=== PATIENT | female | born 1995 | race Caucasian/White ===

== ENCOUNTER 2018-02-17 19:04 | Emergency (ER) | payer MEDICAID ==
[2018-02-17 19:28] VITALS: PULSE 78
[2018-02-17] MEDS ORDERED: Sodium Chloride 0.9% 1,000 ML IV ONE (19:55)
--- NOTE | 2018-02-17 19:55 | C.PDOC ---
History Of Present Illness 22 year old female presents to the ED c/o abdominal pain associated with vomiting that started yesterday. Patient reports her periods have been irregular. Patient denies fever, chills, diarrhea, back pain, dysuria, hematuria. Time Seen by Provider: 02/17/18 19:32 Chief Complaint (Nursing): Abdominal Pain History Per: Patient History/Exam Limitations: no limitations Onset/Duration Of Symptoms: Days (1) Current Symptoms Are (Timing): Still Present Severity: Moderate Pain Scale Rating Of: 4 Location Of Pain/Discomfort: RLQ Radiation Of Pain To:: None Quality Of Discomfort: "Pain" Associated Symptoms: Vomiting Exacerbating Factors: None Alleviating Factors: None Recent travel outside of the [place]: No Additional History Per: Patient Abnormal Vaginal Bleeding: No Past Medical History Reviewed: Historical Data, Nursing Documentation, Vital Signs Vital Signs: Last Vital Signs Temp 97.6 F 02/17/18 19:11 Pulse 78 02/17/18 19:11 Resp 20 02/17/18 19:11 BP 117/83 02/17/18 19:11 Pulse Ox 100 02/17/18 23:15 - Medical History PMH: No Chronic Diseases Denies: Diabetes, Hepatitis, HIV, HTN, Seizures, Sexually Transmitted Disease Surgical History: No Surg Hx Family History: States: Unknown Family Hx - Social History Hx Tobacco Use: Yes Hx Alcohol Use: Yes Hx Substance Use: Yes - Immunization History Hx Tetanus Toxoid Vaccination: No Hx Influenza Vaccination: No Hx Pneumococcal Vaccination: No Review Of Systems Constitutional: Negative for: Fever, Chills Cardiovascular: Negative for: Chest Pain Respiratory: Negative for: Shortness of Breath Gastrointestinal: Positive for: Vomiting, Abdominal Pain. Negative for: Diarrhea Genitourinary: Negative for: Dysuria, Hematuria Musculoskeletal: Negative for: Back Pain Skin: Negative for: Rash Physical Exam - Physical Exam Appears: Non-toxic, In Acute Distress Skin: Warm, Dry Head: Normacephalic Eye(s): bilateral: Normal Inspection Oral Mucosa: Moist Neck: Supple Chest: Symmetrical Cardiovascular: Rhythm Regular Respiratory: No Rales, No Rhonchi, No Wheezing Gastrointestinal/Abdominal: Soft, Tenderness (RLQ), No Distention, Guarding ( mild), No Rebound Back: Normal Inspection Extremity: No Tenderness, No Swelling Extremity: Bilateral: Atraumatic, Normal Color And Temperature, Normal ROM Neurological/Psych: Oriented x3, Normal Speech Gait: Steady ED Course And Treatment - Laboratory Results Result Diagrams: 02/17/18 19:55 02/17/18 20:01 O2 Sat by Pulse Oximetry: 100 (ON RA) Pulse Ox Interpretation: Normal - CT Scan/US CT abd/pelvis Other Rad Studies (CT/US): Read By Radiologist, Radiology Report Reviewed CT/US Interpretation: FINDINGS: Lung bases: Unremarkable. No mass. No consolidation. ABDOMEN: Liver: Unremarkable. No mass. Gallbladder and bile ducts: Unremarkable. No calcified stones. No ductal dilation. Pancreas: Unremarkable. No mass. No ductal dilation. Spleen: Unremarkable. No splenomegaly. Adrenals: Unremarkable. No mass. Kidneys and ureters: Unremarkable. No solid mass. No hydronephrosis. Stomach and bowel: Apparent wall thickening in the cecum, may be secondary to incomplete filling. versus mild colitis. Please clinically correlate. No obstruction. PELVIS: Appendix: A normal appendix is identified. Bladder: Unremarkable. No mass. Reproductive : Unremarkable as visualized. ABDOMEN and PELVIS: Intraperitoneal space: There is trace free fluid in the pelvis. No free air. Bones/joints: No acute fracture. No dislocation. Soft tissues: Unremarkable. Vasculature: Unremarkable. No abdominal aortic aneurysm. Lymph nodes: Unremarkable. No enlarged lymph nodes. IMPRESSION: Possible mild colitis in the cecal region. Normal appendix. Thank you for allowing us to participate in the care of your patient. Dictated and Authenticated by: Ashely Ambriz MD. 02/17/2018 11: 12 PM Eastern Time ([place] & [place]) Progress Note: Plan: - Labs. - IV fluids. - Zofran 4 mg IVP. - UA Reevaluation Time: 23:21 Reassessment Condition: Improved Disposition Counseled Patient/Family Regarding: Studies Performed, Diagnosis, Need For Followup, Rx Given - Disposition Referrals: [facility] [Outside] [facility] [Outside] Disposition: HOME/ ROUTINE Disposition Time: 19:55 Condition: FAIR Additional Instructions: Please return if symptoms recur Prescriptions: Metronidazole [Flagyl] 500 mg PO TID #21 tablet Instructions: Colic (DC) Forms: [employer] (Maori) - Clinical Impression Clinical Impression: Colitis - Scribe Statement The provider has reviewed the documentation as recorded by the Scribe Lamont Husain All medical record entries made by the Scribe were at my direction and personally dictated by me. I have reviewed the chart and agree that the record accurately reflects my personal performance of the history, physical exam, medical decision making, and the department course for this patient. I have also personally directed, reviewed, and agree with the discharge instructions and disposition.
[2018-02-17 20:08] LABS: BASO % 0.5 % (0.0-2.0); EOS # 0.2 K/uL (0.0-0.7); EOS % 2.5 % (0.0-4.0); LYMPH # 2.4 K/uL (1.0-4.3); LYMPH % 30.6 % (20.0-40.0); MEAN CELL VOLUME 91.7 fL (81.0-99.0); MEAN CORPUSCULAR HEMOGLOBIN 30.8 pg (27.0-31.0); MEAN CORPUSCULAR HGB CONC 33.6 g/dL (33.0-37.0); MEAN PLATELET VOLUME 7.5 fL (7.2-11.7); MONO # 0.8 K/uL (0.0-0.8); MONO % 10.6 % (0.0-10.0); NEUT # 4.4 K/uL (1.8-7.0); NEUT % 55.8 % (50.0-75.0); NRBC % 0.1 % (0.0-2.0); RBC 4.22 Mil/uL (3.80-5.20); RED CELL DISTRIBUTION WIDTH 14.7 % (11.5-14.5); WHITE BLOOD COUNT 7.8 K/uL (4.8-10.8)
[2018-02-17 20:15] LABS: HCG,QUALITATIVE URINE NEGATIVE (NEGATIVE)
[2018-02-17 20:19] LABS: ALB/GLOB RATIO 1.4 (1.0-2.1); ALBUMIN 4.4 g/dL (3.5-5.0); CALCIUM 9.1 mg/dl (8.6-10.4); GFR AFRICAN-AMERICAN > 60; GFR NON-AFRICAN AMERICAN > 60; LIPASE 52 U/L (23-300)
[2018-02-17 20:21] LABS: ALT/SGPT 26 U/L (9-52); AST/SGOT 32 U/L (14-36); BLOOD UREA NITROGEN 7 mg/dL (7-17); SQUAMOUS EPITHIAL 2 /hpf (0-5); URINE BILIRUBIN NEGATIVE (NEGATIVE); URINE BLOOD NEGATIVE (NEGATIVE); URINE CLARITY Clear (Clear); URINE COLOR Yellow (YELLOW); URINE GLUCOSE (UA) NORMAL (Normal); URINE LEUKOCYTE ESTERASE NEG Leu/uL (Negative); URINE PROTEIN NEGATIVE (NEGATIVE); URINE UROBILINOGEN NORMAL mg/dL (0.2-1.0)
[2018-02-17] MEDS ORDERED: Iodixanol 320 MG/ML 100 ML BOTTLE IV ONE (22:07)
[2018-02-18 00:15] VITALS: BP 116/80; RESP 16; TEMP 98.4; O2SAT 97
--- NOTE | 2018-02-18 09:42 | CT ---
PROCEDURE: CT Abdomen and Pelvis with contrast HISTORY: rlq and pain COMPARISON: None. TECHNIQUE: Contrast dose: 100 mL Visipaque 320 Radiation dose: Total exam DLP = 328.2 mGy-cm. This CT exam was performed using one or more of the following dose reduction techniques: Automated exposure control, adjustment of the mA and/or kV according to patient size, and/or use of iterative reconstruction technique. FINDINGS: LOWER THORAX: Unremarkable. LIVER: Unremarkable. No gross lesion or ductal dilatation. GALLBLADDER AND BILE DUCTS: Unremarkable. PANCREAS: Unremarkable. No gross lesion or ductal dilatation. SPLEEN: Unremarkable. ADRENALS: Unremarkable. No mass. KIDNEYS AND URETERS: Unremarkable. No hydronephrosis. No solid mass. VASCULATURE: Unremarkable. No aortic aneurysm. BOWEL: Unremarkable. No obstruction. No gross mural thickening. APPENDIX: Normal appendix. PERITONEUM: Unremarkable. No free fluid. No free air. LYMPH NODES: Unremarkable. No enlarged lymph nodes. BLADDER: Unremarkable. REPRODUCTIVE: Unremarkable. BONES: No acute fracture. OTHER FINDINGS: None. IMPRESSION: Unremarkable contrast enhanced CT of the abdomen and pelvis.
== END 2018-02-18 00:15 | disposition home or self-care (01) ==
LOC: C.ER 19:04
DX: K52.9 Noninfective gastroenteritis and colitis, unspecified (principal)
CPT/HCPCS: 74177; 80053; 81001; 83690; 84703; 85025; 96361; 96374; 96375; 99283; J1885; J2405; J7030; Q9967

== ENCOUNTER 2018-05-08 16:21 | Emergency (ER) | payer MEDICAID ==
[2018-05-08 16:33] VITALS: RESP 18; TEMP 99.3
[2018-05-08] MEDS ORDERED: Tmp-Smz 800 mg-160 mg DS Tab PO STA (17:19)
--- NOTE | 2018-05-08 17:23 | C.PDOC ---
History Of Present Illness 22 year old female presents to the ER with complaints of feeling hot, chills, and having a "bump" to the left labia and right axilla since yesterday. Patient denies cough, runny nose, dysuria/hematuria, vaginal discharge/bleeding , abdominal pain. Time Seen by Provider: 05/08/18 16:32 Chief Complaint (Nursing): Abnormal Skin Integrity History Per: Patient History/Exam Limitations: no limitations Onset/Duration Of Symptoms: Days Current Symptoms Are (Timing): Still Present Location Of Injury: Right: Arm (Axilla), Left: Labia Severity: Mild Recent travel outside of the [place]: No Past Medical History Reviewed: Historical Data, Nursing Documentation, Vital Signs Vital Signs: Last Vital Signs Temp 99.3 F 05/08/18 16:25 Pulse 89 05/08/18 17:41 Resp 18 05/08/18 17:41 BP 105/72 05/08/18 17:41 Pulse Ox 98 05/08/18 19:44 - Medical History PMH: No Chronic Diseases Family History: States: No Known Family Hx - Social History Hx Tobacco Use: Yes Hx Alcohol Use: Yes Hx Substance Use: Yes - Immunization History Hx Tetanus Toxoid Vaccination: (unk) Hx Influenza Vaccination: No Hx Pneumococcal Vaccination: No Review Of Systems Constitutional: Positive for: Chills, Other (Feels hot) ENT: Positive for: Throat Pain Cardiovascular: Negative for: Chest Pain Respiratory: Negative for: Cough, Shortness of Breath Gastrointestinal: Negative for: Nausea, Vomiting, Abdominal Pain, Diarrhea Genitourinary: Negative for: Dysuria, Hematuria, Vaginal Discharge, Vaginal Bleeding Skin: Positive for: Other (Bump). Negative for: Rash Physical Exam - Physical Exam Appears: Well, Non-toxic, No Acute Distress Skin: Warm, Dry, Other ( Small developing abscess to left labia, indurated but without fluctuance) Head: Normacephalic Eye(s): bilateral: Normal Inspection Oral Mucosa: Moist Lymphatic: Adenopathy (One palpable lymph node to the right axilla, no fluctuance, induration, erythema, or tenderness.) Cardiovascular: Rhythm Regular Respiratory: Normal Breath Sounds, No Rales, No Rhonchi, No Wheezing Gastrointestinal/Abdominal: Normal Exam, Bowel Sounds, Soft, No Tenderness Back: No CVA Tenderness Extremity: Normal ROM Neurological/Psych: Oriented x3 Gait: Steady ED Course And Treatment O2 Sat by Pulse Oximetry: 98 (Room air) Pulse Ox Interpretation: Normal Progress Note: Patient given PO Motrin, PO Bactrim and PO Keflex. Rxs for same given. Patient instructed to apply warm compresses to area, and to follow up with PMD in 1-2 days. She understands she should return to ED if her symptoms worsen. Disposition Counseled Patient/Family Regarding: Diagnosis, Need For Followup, Rx Given - Disposition Referrals: [facility] [Outside] Disposition: HOME/ ROUTINE Disposition Time: 17:30 Condition: STABLE Additional Instructions: FOLLOW UP WITH YOUR DOCTOR IN 1-2 DAYS APPLY WARM COMPRESSES TO AREA SEVERAL TIMES DAILY USE MEDICATIONS DIRECTED RETURN TO ED IF SYMPTOMS WORSEN Prescriptions: Cephalexin [Keflex] 500 mg PO BID #14 capsule Ibuprofen [Motrin Tab] 600 mg PO Q6 PRN #30 tab PRN Reason: fever/pain Sulfamethoxazole/Trimethoprim [Bactrim DS 800 mg-160 mg] 1 tab PO BID #14 tab Instructions: Boil (DC) Forms: [employer] ([place] Islander) Print Language: MACEDONIAN - POA Present On Arrival: None - Clinical Impression Clinical Impression: Labial abscess, Axillary lymphadenopathy - Scribe Statement The provider has reviewed the documentation as recorded by the Scribaidan Stephenson All medical record entries made by the Julietaibe were at my direction and personally dictated by me. I have reviewed the chart and agree that the record accurately reflects my personal performance of the history, physical exam, medical decision making, and the department course for this patient. I have also personally directed, reviewed, and agree with the discharge instructions and disposition.
[2018-05-08] MEDS ORDERED: Tmp-Smz 800 mg-160 mg DS Tab ONE (17:34)
[2018-05-08 17:43] VITALS: BP 105/72; PULSE 89
[2018-05-08 19:01] VITALS: O2SAT 98
== END 2018-05-08 17:43 | disposition home or self-care (01) ==
LOC: C.ER 16:21
DX: N76.4 Abscess of vulva (principal); R59.1 Generalized enlarged lymph nodes

== ENCOUNTER 2018-08-17 12:36 | Inpatient (IN) | payer MEDICAID ==
[2018-08-17 13:48] LABS: BASO % 0.3 % (0.0-2.0); EOS # 0.1 K/uL (0.0-0.7); EOS % 1.5 % (0.0-4.0); HEMOGLOBIN 13.1 g/dL (11.0-16.0); LYMPH # 2.6 K/uL (1.0-4.3); LYMPH % 37.7 % (20.0-40.0); MEAN CELL VOLUME 92.8 fL (81.0-99.0); MEAN CORPUSCULAR HEMOGLOBIN 31.2 pg (27.0-31.0); MEAN CORPUSCULAR HGB CONC 33.7 g/dL (33.0-37.0); MEAN PLATELET VOLUME 7.5 fL (7.2-11.7); MONO # 0.7 K/uL (0.0-0.8); MONO % 9.4 % (0.0-10.0); NEUT # 3.5 K/uL (1.8-7.0); NEUT % 51.1 % (50.0-75.0); RBC 4.18 Mil/uL (3.80-5.20); RED CELL DISTRIBUTION WIDTH 14.3 % (11.5-14.5); WHITE BLOOD COUNT 6.9 K/uL (4.8-10.8)
[2018-08-17 13:53] LABS: HCG,QUALITATIVE URINE NEGATIVE (NEGATIVE)
[2018-08-17 13:58] LABS: SQUAMOUS EPITHIAL 2 /hpf (0-5); URINE BACTERIA RARE (<OCC); URINE BILIRUBIN NEGATIVE (NEGATIVE); URINE BLOOD NEGATIVE (NEGATIVE); URINE CLARITY Hazy (Clear); URINE COLOR Yellow (YELLOW); URINE GLUCOSE (UA) NORMAL (Normal); URINE LEUKOCYTE ESTERASE TRACE Leu/uL (Negative); URINE PROTEIN 1+ mg/dL (NEGATIVE); URINE UROBILINOGEN NORMAL mg/dL (0.2-1.0)
[2018-08-17 14:01] LABS: ACETAMINOPHEN < 10.0 ug/mL (10.0-30.0); SALICYLATE < 1.0 mg/dL 1
[2018-08-17 14:03] LABS: ALB/GLOB RATIO 1.5 (1.0-2.1); ALBUMIN 4.8 g/dL (3.5-5.0); ALT/SGPT 35 U/L (9-52); AST/SGOT 30 U/L (14-36); BLOOD UREA NITROGEN 12 mg/dL (7-17); GFR NON-AFRICAN AMERICAN > 60
[2018-08-17 14:15] LABS: BARBITURATES, UR NEGATIVE (NEGATIVE); BENZODIAZEPINES, UR NEGATIVE (NEGATIVE); OPIATES, UR NEGATIVE (NEGATIVE); PHENCYCLIDINE, UR NEGATIVE (NEGATIVE)
--- NOTE | 2018-08-17 14:22 | C.PDOC ---
History Of Present Illness 22 y/o female presents to the ER with family for evaluation of suicidal ideation and depression. Patient states that she drank ETOH today. Patient reports that she has child at home.Denies having homicidal ideation and active physical complaints at this time. Time Seen by Provider: 08/17/18 13:31 Chief Complaint (Nursing): Psychiatric Evaluation History Per: Patient History/Exam Limitations: no limitations Onset/Duration Of Symptoms: Days Current Symptoms Are (Timing): Still Present Past Medical History Reviewed: Historical Data, Nursing Documentation, Vital Signs Vital Signs: Last Vital Signs Temp 98.4 F 08/17/18 12:42 Pulse 92 H 08/17/18 12:42 Resp 18 08/17/18 12:42 BP 108/76 08/17/18 12:42 Pulse Ox 97 08/17/18 12:42 - Medical History PMH: Denies: Diabetes, Hepatitis, HIV, HTN, Seizures, Sexually Transmitted Disease Surgical History: No Surg Hx Family History: States: No Known Family Hx - Social History Hx Tobacco Use: Yes Hx Alcohol Use: Yes Hx Substance Use: Yes - Immunization History Hx Tetanus Toxoid Vaccination: No Hx Influenza Vaccination: No Hx Pneumococcal Vaccination: No Review Of Systems Except As Marked, All Systems Reviewed And Found Negative. Constitutional: Negative for: Fever, Chills Psych: Positive for: Depression, Suicidal ideation Physical Exam - Physical Exam Appears: Other ( female, argumentative) Skin: Normal Color, Warm, Dry Head: Atraumatic, Normacephalic Eye(s): bilateral: Normal Inspection Nose: Normal Oral Mucosa: Moist Neck: Supple Chest: Symmetrical Cardiovascular: Rhythm Regular Respiratory: Normal Breath Sounds, No Rales, No Rhonchi, No Wheezing Gastrointestinal/Abdominal: Normal Exam, Soft, No Tenderness, No Guarding, No Rebound Extremity: Normal ROM Neurological/Psych: Oriented x3, Normal Speech, Normal Motor, Normal Sensation ED Course And Treatment - Laboratory Results Result Diagrams: 08/17/18 13:39 08/17/18 13:39 Lab Interpretation: Abnormal (ETOH 96) O2 Sat by Pulse Oximetry: 97 (RA) Pulse Ox Interpretation: Normal Medical Decision Making Medical Decision Making: alcohol abuse depression abusive with staff- threw soda @ staff. 1430: re-eval w Crisis, prefer to admit pt to Psych for depression/alcohol abuse adm orders. Disposition Doctor Will See Patient In The: Hospital Counseled Patient/Family Regarding: Studies Performed, Diagnosis - Disposition Disposition: HOSPITALIZED Disposition Time: 14:29 Condition: GOOD - Clinical Impression Clinical Impression: Alcohol abuse, Depression - Scribe Statement The provider has reviewed the documentation as recorded by the Kasey Gold Provider Attestation: All medical record entries made by the Kasey were at my direction and personally dictated by me. I have reviewed the chart and agree that the record accurately reflects my personal performance of the history, physical exam, medical decision making, and the department course for this patient. I have also personally directed, reviewed, and agree with the discharge instructions and disposition.
[2018-08-17 15:49] VITALS: O2SAT 97
--- NOTE | 2018-08-17 16:01 | PCM.BM ---
<Cynthia Rm - Last Filed: 08/17/18 15:58> Treatment Plan Problems - Problems identified on initial assessmt Depression Date Initiated: 08/17/18 Time Initiated: 15:59 Assessment reference: NA Status: Active Problem 2 Time Initiated: 15:59 Assessment reference: NA Status: Active Treatment assets and liabiliti Patient Assests: adapts well, ADL independent, physically healthy Patient Liabilities: financial problems, relationship conflicts, substance abuse, legal issue - Milieu Protocol Maintain good personal hygiene: daily Encourage regular showers, daily Remind patient to perform daily oral care, every shift Assist patient to perform ADL's Conduct patient checks and document Observation sheet: Q15 minutes Maintain personal safety: daily Educate patient to report safety concerns to staff, every other day Educate patient to report safety concerns to staff, every other day Monitor environment for contraband/sharps Medication safety: Monitor for expected outcome, potential side effects: every other day, Assess barriers to learning: every other day, Assess readiness for medication education: every other day <Sanaz Anthony - Last Filed: 08/19/18 11:20> - Diagnosis (1) Depression Status: Acute Interventions: 08/19/18 11:20 * Assess/adjust medications daily and /or as needed * See patient on an individual basis 7x/week to assess symptoms of depression * Monitor for side effects & effectiveness of medications * (2) Alcohol abuse Status: Acute Interventions: 08/19/18 11:21 * Assess 7x/week regarding severity of withdrawal * Educate regarding risks, benefits, side effects and alternatives of medications * Use Motivational Interviewing for abstinence * Use CBT for relapse prevention * Medication management for withdrawal symptoms * Encourage medication assisted treatment * <Sumi Ramires - Last Filed: 08/19/18 12:38> Family Contact Family involvement: Family/SO is involved Family contact: Patient declines to allow family contact at present - Goals for Treatment Patient goals for treatment: "I want to go to an outpatient program." Discharge/Continuing Care - Education Needs Education Needs: Patient Medication, Patient Coping Skills - Discharge Discharge Criteria: Tolerates medication w/o severe side effects, Reduction of target symptoms Discharge to:: Home - Treatment Team Participation Discussed with Family/SO: No Was Patient/Family/SO present at Treatment Team Meeting: Yes
[2018-08-17] MEDS ORDERED: Ondansetron Hcl 2 mg/2.5 ml Oral Sol PO PRN (16:30)
--- NOTE | 2018-08-18 10:28 | PCM.PSYCH ---
Initial Psychiatric Evaluation - Initial Psychiatric Evaluation Type of Admission: Voluntary Legal Status: Capacity History of Present Illness and Precipitating Events: Patient is a 22 year old mother of an 8 year old daughter self referred to [facility] for a psych eval. Patient reports suicidal thoughts (initially) with no plan. Patient states I dont want to be here anymore. Liquor Bridge Operator asked patient if she identify the stressors that are making her feel this way. Patient stated she felt alone. She also reports testing positive three years ago. Liquor Bridge Operator assumed that the patient meant that she was HIV+ however upon reviewing her medical history with the patient she advised that she has herpes and this is what she meant when saying she was positive. Patient also identifies that the one year anniversary of her uncles is coming up. She also is facing eviction from her apartment due to nonpayment of rent. However she reports her mend worker is assisting her with the eviction. Patient denies any formal psychiatric treatment history but was in counseling as a teen because per her report she called DYFS on her mother frequently. Patient reports a family history of mental health issues and that her brother is bipolar. Patient reports he does not take his meds. She also added that her boyfriend thinks Im bipolar. Patient identified having anger issues and a history of cutting as a teen. Patient denies any current self-mutilation. Patient has a history of one PES eval 09/12/13. Patient presented UTI with SI. Patient was evaluated and discharged as she retracted the suicidal statement once sober. Patient has a history of alcohol abuse and daily marijuana use. Patient reports the marijuana helps calm me. She does not identify this as a problem. But states she may have a problem, with alcohol. Patient reports drinking a few times a week but could not provide details with regard to pattern of use. Patient does report drinking [place] Iced Tea earlier today. Patient denies any substance abuse treatment history. Patient is a poor historian likely due to substance use. Later in the eval this creative services writer asked more detailed questions regarding patients SI and history. At this time patient identified a plan to OD. Patient reports she has an unspecified type and quantity of pills at home. Liquor Bridge Operator asked patient if she has attempted suicide before and she said yes. Liquor Bridge Operator asked when the last attempt was and she stated a few hours ago. Liquor Bridge Operator asked for details specifically what pills she took. Patient states she just drank alcohol. Liquor Bridge Operator asked about any other attempts and patient now states her last attempt was a couple of weeks ago. She admits taking an unspecified amount of Advil. She did not seek or receive medical attention. Patient states I want to get help. Patient would benefit from inpatient psych admission and is voluntary for same. Current Medications: Active Medications Generic Name Dose Route Start Last Admin Trade Name Freq PRN Reason Stop Dose Admin Ondansetron HCl 4 mg 08/17/18 16:16 08/17/18 17:03 Zofran Tab PO 4 mg Q6H PRN Administration Nausea/Vomiting Pneumococcal Polyvalent Vaccine 0.5 ml 08/20/18 10:00 Pneumovax 23 Vaccine IM 08/20/18 10:01 .ONCE ONE Past Psychiatric History - Past Psychiatric History Previous Treatment History: None Pertinent Medical Hx (Current Medical&Sleep Prob, Allergies): Allergies Allergy/AdvReac Type Severity Reaction Status Date / Time No Known Allergies Allergy Verified 08/17/18 12:43 No Known Home Med 08/17/18 Review of Systems - Review of Systems All systems: reviewed and no additional remarkable complaints except - Psychiatric Psychiatric: Anxiety, Irritability, Suicidal Ideation Mental Status Examination - Personal Presentation Personal Presentation: Looks stated age - Affect Affect: Constricted, Depressed - Motor Activity Motor Activity: Calm - Reliability in Providing Information Reliability in Providing Information: Fair - Speech Speech: Organized - Mood Mood: Depressed, Anxious - Formal Thought Process Formal Thought Process: No Impairment - Obsessions/Compulsions Obsessions: No Compulsions: No - Cognitive Functions Orientation: Person, Place, Time Sensorium: Alert Attention/Concentration: Attentive Abstract Thinking: [place] Estimate of Intelligence: Below average Judgement: Imparied, as evidence by: Poor judgement, Imparied, as evidence by: Lack of insight into illness - Risk Risk: Suicidal, Withdrawal, Diminished functioning - Limitations Limitations: Living alone DSM 5 DX - DSM 5 DSM 5 Diagnosis: Major depressive disorder recurrent severe without psychotic features Alcohol use disorder severe Alcohol withdrawal Cannabis use disorder severe - Recommended/Plan of Treatment Treatment Recommendations and Plan of Treatment: Major depressive disorder recurrent severe without psychotic features Alcohol use disorder severe Alcohol withdrawal Cannabis use disorder severe CBT Psychoeducation Supportive therapy Trazodone 50 mg p.o. nightly [place] 300 mg p.o. 3 times daily Neurontin 100 mg p.o. twice daily Librium prn PRN medications
[2018-08-18] MEDS: Multiple Vitamins Tab PO SCH (11:02)
[2018-08-19] MEDS: Multiple Vitamins Tab PO SCH (10:10)
--- NOTE | 2018-08-19 10:38 | PCM.PYCHPN ---
Psychiatric Progress Note - Psychiatric Progress Note Patient seen today, length of contact: 15 min Patient Chief Complaint: I am feeling depressed.' Problems Identified/Issues Discussed: Patient was seen and evaluated, chart reviewed and discussed with the staff. Patient still reports depressed mood and at times feelings of hopelessness and helplessness. She still reports irritability and agitation and racing thoughts. She denies any auditory hallucinations or any paranoia. She is taking medication and denies any side effects. Supportive therapy was given Medication Change: Yes Medical Record Reviewed: Yes Mental Status Examination - Cognitive Function Orientation: Person, Place, Situation, Time Memory: Intact Attention: WNL Concentration: Poor Association: WNL Fund of Knowledge: Poor - Mood Mood: Depressed, Anxious - Affect Affect: Constricted, Depressed - Speech Speech: Soft - Formal Thought Process Formal Thought Process: No Impairment - Suicidal Ideation Suicidal Ideation: No - Homicidal Ideation Homicidal Ideation: No Goal/Treatment Plan - Goal/Treatment Plan Need for Continued Stay: Discharge may exacerbated symptoms, Severe functional impairment Progress Toward Problem(s) and Goals/Treatment Plan: Major depressive disorder recurrent severe without psychotic features Alcohol use disorder severe Alcohol withdrawal Cannabis use disorder severe CBT Psychoeducation Supportive therapy Trazodone 50 mg p.o. nightly [place] 300 mg p.o. 3 times daily Neurontin 100 mg p.o. twice daily Librium prn PRN medications - Smoking Cessation Smoking Cessation Initiated: No
[2018-08-20 06:42] VITALS: RESP 18
[2018-08-20] MEDS ORDERED: Influenza Vaccine 60 MCG/0.5 ML SYR (3 yr & up) IM ONE (10:00)
[2018-08-20] MEDS ORDERED: Pneumococcal 23-Valent Vaccine IM ONE (10:00)
[2018-08-20] MEDS: Multiple Vitamins Tab PO SCH (10:53)
[2018-08-21 06:33] VITALS: BP 101/66; PULSE 84; TEMP 97.5
--- NOTE | 2018-08-21 10:25 | PCM.PYCHPN ---
Psychiatric Progress Note - Psychiatric Progress Note Patient seen today, length of contact: 15 min Patient Chief Complaint: I am feeling little better.' Problems Identified/Issues Discussed: Patient was seen and evaluated, chart reviewed and discussed with the staff. Patient reports some improvement in her mood and some improvement in the feelings of hopelessness and helplessness. She reports some improvement in the irritability and agitation. She denies any auditory hallucinations or any paranoia. She is taking medication and denies any side effects. Supportive therapy was given Medication Change: Yes Medical Record Reviewed: Yes Mental Status Examination - Cognitive Function Orientation: Person, Place, Situation, Time Memory: Intact Attention: WNL Concentration: Poor Association: WNL Fund of Knowledge: Poor - Mood Mood: Depressed, Anxious - Affect Affect: Constricted, Depressed - Speech Speech: Soft - Formal Thought Process Formal Thought Process: No Impairment - Suicidal Ideation Suicidal Ideation: No - Homicidal Ideation Homicidal Ideation: No Goal/Treatment Plan - Goal/Treatment Plan Need for Continued Stay: Discharge may exacerbated symptoms, Severe functional impairment Progress Toward Problem(s) and Goals/Treatment Plan: Major depressive disorder recurrent severe without psychotic features Alcohol use disorder severe Alcohol withdrawal Cannabis use disorder severe CBT Psychoeducation Supportive therapy Trazodone 50 mg p.o. nightly [place] 300 mg p.o. 3 times daily Neurontin 100 mg p.o. twice daily Librium prn PRN medications
--- NOTE | 2018-08-21 10:28 | PCM.PYCHDC ---
Mental Status Examination - Mental Status Examination Orientation: Person, Place, Situation, Time Memory: Intact Mood: Neutral Affect: Constricted Speech: Soft Attention: WNL Concentration: WNL Association: WNL Fund of Knowledge: WNL Formal Thought Process: No Impairment Description of patient's judgement and insight: good, fair Psychotic Thoughts and Behaviors: denies any AVH Suicidal Ideation: No Current Homicidal Ideation?: No Discharge Summary - Discharge Note Consultations:: List each consultation separately and include: 1. Reason for request. 2. Findings. 3. Follow-up Summary of Hospital Course include:: 1. Description of specific treatment plan utilized for patients during their course of treatmen. 2. Summarize the time- course for resolution of acute symptoms and/or regressed behaviors. 3. Describe issues identified and worked on during hospitalization. 4. Describe medication utilized. 5. Describe medical problems identified and treated. 6. Reassessment of suicide risk Summary of Hospital Course: Patient is a 22 year old mother of an 8 year old daughter self referred to [facility] for a psych eval. Patient reports suicidal thoughts (initially) with no plan. Patient states I dont want to be here anymore. [facility] asked patient if she identify the stressors that are making her feel this way. Patient stated she felt alone. She also reports testing positive three years ago. [facility] assumed that the patient meant that she was HIV+ however upon reviewing her medical history with the patient she advised that she has herpes and this is what she meant when saying she was positive. Patient also identifies that the one year anniversary of her uncles is coming up. She also is facing eviction from her apartment due to nonpayment of rent. However she reports her tray worker is assisting her with the eviction. Patient denies any formal psychiatric treatment history but was in counseling as a teen because per her report she called [facility] on her mother frequently. Patient reports a family history of mental health issues and that her brother is bipolar. Patient reports he does not take his meds. She also added that her boyfriend thinks Im bipolar. Patient identified having anger issues and a history of cutting as a teen. Patient denies any current self-mutilation. Patient has a history of one PES eval 09/12/13. Patient presented UTI with SI. Patient was evaluated and discharged as she retracted the suicidal statement once sober. Patient has a history of alcohol abuse and daily marijuana use. Patient reports the marijuana helps calm me. She does not identify this as a problem. But states she may have a problem, with alcohol. Patient reports drinking a few times a week but could not provide details with regard to pattern of use. Patient does report drinking [place] Iced Tea earlier today. Patient denies any substance abuse treatment history. Patient is a poor historian likely due to substance use. Later in the eval this newswriter asked more detailed questions regarding patients SI and history. At this time patient identified a plan to OD. Patient reports she has an unspecified type and quantity of pills at home. [facility] asked patient if she has attempted suicide before and she said yes. [facility] asked when the last attempt was and she stated a few hours ago. [facility] asked for details specifically what pills she took. Patient states she just drank alcohol. [facility] asked about any other attempts and patient now states her last attempt was a couple of weeks ago. She admits taking an unspecified amount of Advil. She did not seek or receive medical attention. Patient states I want to get help. Patient would benefit from inpatient psych admission and is voluntary for same. - Diagnosis (1) Depression Current Visit: Yes Status: Acute (2) Alcohol abuse Current Visit: Yes Status: Acute - Final Diagnosis (DSM 5) Condition upon Discharge: GOOD Disposition: HOME/ ROUTINE Follow-up Treatment Plan: Major depressive disorder recurrent severe without psychotic features Alcohol use disorder severe Alcohol withdrawal Cannabis use disorder severe CBT Psychoeducation Supportive therapy Trazodone 50 mg p.o. nightly [place] 300 mg p.o. 3 times daily Neurontin 100 mg p.o. twice daily Librium prn PRN medications Prescriptions/Medication Reconciliation: DiphenhydrAMINE [Benadryl] 50 mg PO HS #30 cap [place] Carbonate [[place] Carbonate 300MG] 300 mg PO TID #90 cap traZODone [Desyrel] 100 mg PO HS PRN #30 tab PRN Reason: Insomnia
== END 2018-08-21 11:06 | disposition home or self-care (01) | DRG 430 ==
LOC: C.ER 12:36 → C.5E 14:29
PROVIDERS: ADMIT Psychiatry & Neurology Psychiatry; ATTEND Psychiatry & Neurology Psychiatry
PROC: GZ3ZZZZ Medication Management (ICD-10-PCS; principal; 2018-08-17)
PROC: HZ89ZZZ Medication Management for Substance Abuse Treatment, Other Replacement Medication (ICD-10-PCS; 2018-08-17)
PROC: GZHZZZZ Group Psychotherapy (ICD-10-PCS; 2018-08-17)
PROC: GZ56ZZZ Individual Psychotherapy, Supportive (ICD-10-PCS; 2018-08-17)
DX: F33.2 Major depressive disorder, recurrent severe without psychotic features (principal); F10.239 Alcohol dependence with withdrawal, unspecified; F12.20 Cannabis dependence, uncomplicated; R45.851 Suicidal ideations; F17.210 Nicotine dependence, cigarettes, uncomplicated; Z91.5 Personal history of self-harm; Z87.440 Personal history of urinary (tract) infections

== ENCOUNTER 2018-09-22 18:45 | Emergency (ER) | payer MEDICAID ==
--- NOTE | 2018-09-22 20:42 | C.PDOC ---
History Of Present Illness 23 y/o female comes in complaining of a fever with temperature of 102, nasal congestion, sore throat, and cough since earlier today. Patient denies vomiting, diarrhea, or other associated symptoms. Patient reports she took ibuprofen with no relief. HPI: Influenza Chief Complaint: Flu-like Symptoms History Per: Patient Exam Limitations: no limitations Onset/Duration Of Symptoms: Hrs Past Medical History Reviewed: Historical Data, Nursing Documentation, Vital Signs Vital Signs: Last Vital Signs Temp 102.7 F H 09/22/18 20:23 Pulse 126 H 09/22/18 19:17 Resp BP 121/83 09/22/18 19:17 Pulse Ox 94 L 09/22/18 19:17 - Medical History PMH: Bipolar Disorder, Depression Denies: Diabetes, Hepatitis, HIV, HTN, Seizures, Sexually Transmitted Disease - [facility] Procedures GROUP PSYCHOTHERAPY (08/17/18) INDIVIDUAL PSYCHOTHERAPY, SUPPORTIVE (08/17/18) MEDICATION MANAGEMENT (08/17/18) MEDS MGMT FOR SUBSTANCE ABUSE TREATMENT, OTH REPL MED (08/17/18) Family History: States: No Known Family Hx - Social History Hx Tobacco Use: Yes Hx Alcohol Use: Yes Hx Substance Use: Yes (marijuana & alcohol) - Immunization History Hx Tetanus Toxoid Vaccination: No Hx Influenza Vaccination: No Hx Pneumococcal Vaccination: No Review Of Systems Constitutional: Positive for: Fever. Negative for: Chills ENT: Positive for: Nose Congestion, Other (sore throat) Cardiovascular: Negative for: Chest Pain Respiratory: Positive for: Cough. Negative for: Shortness of Breath Gastrointestinal: Negative for: Vomiting, Diarrhea Skin: Negative for: Rash Physical Exam - Physical Exam Appears: Non-toxic, No Acute Distress, Other (well appearing, well hydrated) Skin: Warm, Dry Head: Atraumatic, Normacephalic Eye(s): bilateral: Normal Inspection Nose: Other (nasal turbinates clear mucus discharge) Oral Mucosa: Moist Throat: Other (injected pharynx) Cardiovascular: Rhythm Regular, No Murmur Respiratory: Normal Breath Sounds, No Rales, No Rhonchi, No Wheezing Gastrointestinal/Abdominal: Soft, No Tenderness Extremity: Bilateral: Atraumatic, Normal ROM Neurological/Psych: Oriented x3, Normal Speech Medical Decision Making Medical Decision Making: Plan: --Ibuprofen PO --Tylenol PO - ECG O2 Sat by Pulse Oximetry: 94 (RA) Pulse Ox Interpretation: Abnormal Disposition Counseled Patient/Family Regarding: Diagnosis, Need For Followup, Rx Given - Disposition Disposition: HOME/ ROUTINE Disposition Time: 20:40 Condition: IMPROVED Prescriptions: Oseltamivir Phosphate [Tamiflu] 75 mg PO BID 5 Days capsule Instructions: Flu, Adult (DC) Forms: [employer] ([place]), School Excuse - Clinical Impression Clinical Impression: Influenza-like illness - PA / UTILITY HAND / Resident Statement MD/DO has reviewed & agrees with the documentation as recorded. - Scribe Statement The provider has reviewed the documentation as recorded by the Scribaidan Weir All medical record entries made by the Kasey were at my direction and personally dictated by me. I have reviewed the chart and agree that the record accurately reflects my personal performance of the history, physical exam, medical decision making, and the department course for this patient. I have also personally directed, reviewed, and agree with the discharge instructions and disposition.
[2018-09-22 20:44] VITALS: TEMP 101.6
[2018-09-22 21:01] VITALS: BP 120/74; PULSE 118
[2018-09-22 21:20] VITALS: O2SAT 94
== END 2018-09-22 21:01 | disposition home or self-care (01) ==
LOC: C.ER 18:45
DX: J11.1 Influenza due to unidentified influenza virus with other respiratory manifestations (principal); F17.210 Nicotine dependence, cigarettes, uncomplicated